=== PATIENT | male | born 1975 | race Two or more races ===

== ENCOUNTER 2019-09-30 19:23 | Emergency (ER) | payer SELFPAY ==
[2019-09-30] MEDS ORDERED: Lidocaine 1% 10 ML MDV INJECT ONE (19:26)
[2019-09-30] MEDS ORDERED: Bupivacaine 0.5% 10 ML SDV INJECT ONE (19:26)
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
--- NOTE | 2019-09-30 20:15 | CR ---
Right hand: 4 views of the right hand were obtained. Comparison: No previous hand study is available. No fracture, dislocation or other bony abnormality is appreciated. Mild soft tissue swelling appears to be present medially. Impression: 1. Possible soft tissue swelling. 2. No acute bony abnormality is appreciated. Diagnostic code #2 This report was dictated in MDT
== END 2019-09-30 21:35 | disposition home or self-care (01) ==
LOC: JD.ED 19:23
DX: S61.411A Laceration without foreign body of right hand, initial encounter (principal); S60.512A Abrasion of left hand, initial encounter; V53.5XXA Driver of pick-up truck or van injured in collision with car, pick-up truck or van in traffic accident, initial encounter
CPT/HCPCS: 12002; 73130; 99284; J2001; J3490; 99282